=== PATIENT | female | born 1955 | race Caucasian/White ===

== ENCOUNTER 2016-07-03 12:07 | Emergency (ER) | payer MEDICARE, BC ==
--- NOTE | 2016-07-10 21:25 | ER ---
ADMIT: 07/03/2016 RM/LOC: ER [facility] MR#: [id number] [id number] [place] [address] [address] [address] Emergency Room Report SEX: F AGE: 60 : 1955 DATE: 07/03/2016 ADDENDUM: This patient comes to the ER because she has had violent vomiting and diarrhea today. She states at times, she is having vomiting and diarrhea at the same time. She thinks she could have eaten something bad yesterday. She is diabetic and that is what concerns her. On physical exam, she is alert. Her abdomen is soft, nontender to palpation. Her posterior pharynx is benign. She does have dry oral mucosal membranes. IV normal saline was started. She was given a liter of bolus. Her CBC, BMP were normal. No serum ketones. After receiving a liter of normal saline and some Zofran, she was much improved. I wrote a prescription for Zofran, and she is going to follow up with her primary or return to the ER if she is unable to keep fluids down. Please see my T-sheet. CLARICE Rodriguez / Len aLmar MD / modl JOB #: [id number] CC: Len Lamar MD, Attending Physician UNKNOWN, Family Physician
== END 2016-07-03 15:30 | disposition home or self-care (01) ==
LOC: ER 12:07
DX: R11.2 Nausea with vomiting, unspecified (principal); R19.7 Diarrhea, unspecified; I10 Essential (primary) hypertension; E11.9 Type 2 diabetes mellitus without complications; Z85.3 Personal history of malignant neoplasm of breast; Z79.82 Long term (current) use of aspirin; Z79.899 Other long term (current) drug therapy